=== PATIENT | male | born 1980 | race African-American/Black ===

== ENCOUNTER 2024-07-05 16:22 | Inpatient (IN) | payer OTHER ==
[~2024-07-05] VITALS: Ht 180.3 cm; Wt 61.2 kg
[2024-07-05 16:24] VITALS: O2SAT 99
[2024-07-05] MEDS: LACTATED RINGERS 1,000 ML IV SCH (16:57)
[2024-07-05] MEDS: ONDANSETRON HCL 4MG/2ML INJ IV ONE (16:57)
[2024-07-05] MEDS: MORPHINE SULFATE 4 MG/ML INJ (FOR IV/IM USE) IV ONE (16:57)
[2024-07-05 17:50] LABS: DIFFERENTIAL COMMENT 1; HEMATOCRIT. 42.1 % (42.0-52.0); HEMOGLOBIN. 13.9 g/dL (14.0-18.0); MEAN CORPUSCULAR HEMOGLOBIN 35.5 pg (28.0-32.0); MEAN CORPUSCULAR HGB CONC 32.9 g/dL (31.0-37.0); MEAN CORPUSCULAR VOLUME 107.9 fL (80.0-94.0); MEAN PLATELET VOLUME 8.7 fl (7.4-10.4); PLATELET 323 x1000/uL (130-400); RED CELL DISTRIBUTION WIDTH 14.9 % (11.6-14.6); WHITE BLOOD COUNT 6.3 x1000/uL (4.5-11.0)
[2024-07-05 17:57] LABS: CARBON DIOXIDE 14 mEq/L (21-32); CHLORIDE 102 mEq/L (98-107); SODIUM 137 mEq/L (136-145)
[2024-07-05 17:58] LABS: CALCIUM 9.7 mg/dL (8.7-10.4)
[2024-07-05 18:02] LABS: CREATININE 0.8 mg/dL (0.6-1.3)
[2024-07-05 18:03] LABS: GLUCOSE 119 mg/dL (70-105); UREA NITROGEN BLOOD 5 mg/dL (9-23)
[2024-07-05 18:04] LABS: ALANINE AMINOTRANSFERASE 116 IU/L (10-49); ASPARTATE AMINOTRANSFERASE 174 IU/L (<34)
[2024-07-05 18:05] LABS: ALBUMIN 4.6 g/dL (3.2-4.8); BILIRUBIN DIRECT 0.4 mg/dL (<=3.0); BILIRUBIN TOTAL 1.2 mg/dL (0.1-1.0); PROTEIN TOTAL 7.6 g/dL (6.0-8.3)
[2024-07-05 18:22] LABS: TROPONIN I HIGH SENSITIVITY < 4 ng/L (3.0-53)
[2024-07-05 18:29] LABS: PLATELET ESTIMATE NORMAL
[2024-07-05 18:30] LABS: ANISOCYTOSIS 1+
[2024-07-05 18:31] LABS: STOMATOCYTES 1+
[2024-07-05] MEDS ORDERED: MAGNESIUM/ALUMINUM HYDROXIDE/SIMETHICONE 30ML UDC PO PRN (18:45)
[2024-07-05] MEDS ORDERED: IPRATROPIUM/ALBUTEROL 0.5-3(2.5)MG/3ML NEB NEB PRN (18:45)
[2024-07-05] MEDS ORDERED: GUAIFENESIN 200MG/10ML SUGAR FREE UDC PO PRN (18:45)
[2024-07-05] MEDS ORDERED: NITROGLYCERIN 0.4MG TABLET SL SL PRN (18:45)
[2024-07-05] MEDS ORDERED: NA PHOS,M-B/NA PHOS,DI-BA ENEMA 118ML PR PRN (18:45)
[2024-07-05] MEDS ORDERED: ACETAMINOPHEN 325MG TABLET PO PRN ×2 (18:45)
[2024-07-05 19:02] LABS: IRON 89 ug/dL (65-175)
[2024-07-05 19:03] LABS: ETHANOL BLOOD 59 mg/dL (<10)
[2024-07-05 19:05] LABS: TOTAL IRON BINDING CAPACITY 276 ug/dl (250-425)
[2024-07-05 19:07] LABS: T4 FREE 0.94 ng/dL (0.89-1.76); THYROID STIMULATING HORMONE 0.25 uIU/mL (0.55-4.78)
[2024-07-05 19:10] LABS: VITAMIN B12 SERUM 570 pg/mL (211-911)
[2024-07-05 19:20] LABS: HEPATITIS B SURFACE ANTIGEN NEGATIVE (Negative)
[2024-07-05 19:41] LABS: HEPATITIS A AB IGM NEGATIVE (Negative); HEPATITIS B CORE AB IGM NEGATIVE (Negative)
[2024-07-05 19:42] LABS: HEPATITIS C AB NON REACTIVE (Neg) (Negative)
[2024-07-05] MEDS: ENOXAPARIN 40MG/0.4ML SYR SUBCUT SCH (20:26)
[2024-07-05] MEDS: KETOROLAC 15MG/ML VIAL IV PRN (20:27)
[2024-07-05] MEDS: DEXT 5%/LACTATED RINGERS 1,000 ML IV SCH (20:27)
[2024-07-05] MEDS: ONDANSETRON HCL 4MG/2ML INJ IV PRN (20:27)
[2024-07-05] MEDS: PANTOPRAZOLE SODIUM 40 MG/VIAL IV SCH (20:31)
[2024-07-05] MEDS ORDERED: ZOLPIDEM TARTRATE 5MG TABLET PO PRN (21:00)
[2024-07-05 21:56] LABS: TROPONIN I HIGH SENSITIVITY < 4 ng/L (3.0-53)
[2024-07-05 22:19] LABS: LACTIC ACID 3.7 mmol/L (0.4-2.0)
[2024-07-05 22:36] LABS: FOLIC ACID (FOLATE) SERUM 3.67 ng/mL (>5.38)
[2024-07-05] MEDS: MVI, ADULT NO.1 10 ML, FOLIC ACID 1 MG, THIAMINE HCL 100 MG in SODIUM CHLORIDE 0.9% 1,0... IV NR (23:58)
[2024-07-06] MEDS: IOHEXOL-300 100 ML BOTTLE ONE (00:21)
[2024-07-06 01:39] LABS: AMMONIA < 17 uMol/L (<32)
[2024-07-06 09:01] LABS: BASOPHILS % 1.6 % (0.0-2.0); DIFFERENTIAL COMMENT 0; EOSINOPHILS % 0.6 % (0.0-5.0); HEMATOCRIT. 41.3 % (42.0-52.0); HEMOGLOBIN. 13.4 g/dL (14.0-18.0); LYMPHOCYTES % 20.4 % (20.0-50.0); MEAN CORPUSCULAR HEMOGLOBIN 35.2 pg (28.0-32.0); MEAN CORPUSCULAR HGB CONC 32.4 g/dL (31.0-37.0); MEAN CORPUSCULAR VOLUME 108.6 fL (80.0-94.0); MEAN PLATELET VOLUME 8.4 fl (7.4-10.4); MONOCYTES % 12.3 % (2.0-8.0); NEUTROPHILS % 65.1 % (40.0-76.0); PLATELET 280 x1000/uL (130-400); RED CELL DISTRIBUTION WIDTH 14.8 % (11.6-14.6); WHITE BLOOD COUNT 4.2 x1000/uL (4.5-11.0)
[2024-07-06 09:08] LABS: CARBON DIOXIDE 23 mEq/L (21-32); CHLORIDE 105 mEq/L (98-107); POTASSIUM 3.9 mEq/L (3.5-5.1); SODIUM 137 mEq/L (136-145)
[2024-07-06 09:09] LABS: CALCIUM 9.5 mg/dL (8.7-10.4)
[2024-07-06 09:13] LABS: CREATININE 0.8 mg/dL (0.6-1.3); GLUCOSE 90 mg/dL (70-105)
[2024-07-06 09:14] LABS: UREA NITROGEN BLOOD 5 mg/dL (9-23)
[2024-07-06 09:15] LABS: ALANINE AMINOTRANSFERASE 92 IU/L (10-49); ALBUMIN 4.2 g/dL (3.2-4.8); ASPARTATE AMINOTRANSFERASE 108 IU/L (<34)
[2024-07-06 09:16] LABS: BILIRUBIN TOTAL 2.1 mg/dL (0.1-1.0); PROTEIN TOTAL 6.8 g/dL (6.0-8.3)
[2024-07-06] MEDS: POTASSIUM PHOSPHATE 20 MMOL in DEXT 5% WATER 243.3333 ML IV ONE (12:13)
[2024-07-06] MEDS: MAGNESIUM 2 G PREMIX 50 ML IV NR (13:24)
[2024-07-06 15:12] VITALS: BP 158/102; PULSE 59; RESP 11; TEMP 98.1
[2024-07-06 15:16] VITALS: BP 166/98; PULSE 51; RESP 12; TEMP 98.5; O2SAT 99
[2024-07-06 16:00] VITALS: BP 145/100; PULSE 48; RESP 17; O2SAT 98
[2024-07-06] MEDS: DOCUSATE SODIUM 100MG CAPSULE PO PRN (16:56)
[2024-07-06] MEDS: CLONIDINE 0.1MG TABLET PO PRN (16:56)
== END 2024-07-06 18:30 | disposition left against medical advice (07) | DRG 641 ==
LOC: ER 16:22 → MICUSO 18:30 → EDBEDREQ 18:33 → EDBEDREQTM 18:33 → 5WST 07-06 10:16 → 3WST 07-06 14:01
PROVIDERS: ADMIT Internal Medicine; ATTEND Internal Medicine
DX: E16.2 Hypoglycemia, unspecified (principal); F10.10 Alcohol abuse, uncomplicated; D63.8 Anemia in other chronic diseases classified elsewhere; R74.01 Elevation of levels of liver transaminase levels; Z53.29 Procedure and treatment not carried out because of patient's decision for other reasons; Z79.899 Other long term (current) drug therapy
CPT/HCPCS: 36415; 71045; 74177; 80048; 80053; 80076; 80320; 82140; 82607; 82746; 82962; 83036; 83540; 83550; 83605; 83735; 84100; 84145; 84439; 84443; 84484; 85025; 86705; 86709; 87340; 93005; 93970; 99291; J1650; J1885; J2270; J2405; J2470; J3411; J3475; J3490; J7030; J7060; Q9967; G0480